=== PATIENT | male | born 1975 | race Caucasian/White ===

== ENCOUNTER 2016-09-08 11:33 | Emergency (ER) | payer OTHER ==
[2016-09-08 12:17] VITALS: BP 120/72; PULSE 100; RESP 16; O2SAT 97
[2016-09-08] MEDS ORDERED: IBUPROFEN 600 MG TAB PO ONE (12:18)
--- NOTE | 2016-09-08 13:55 | UCPHY ---
H & P Time Seen by Provider: 09/08/16 13:34 Patient Type: New HPI/ROS: This patient presents with a chief complaint of fever up to 101 degrees associated with myalgias, headache and cough. Symptoms began yesterday. He has had some minimal nasal congestion but no sore throat and he also denies chest pain and shortness of breath. He did not receive a shot for influenza. REVIEW OF SYSTEMS: Constitutional: Fever, fatigue and myalgia Eyes: No complaints ENT: Mild nasal congestion, denies sore throat, denies earache Respiratory: Cough, no shortness of breath Cardiac: Chest pain when coughing only Gastrointestinal: Nausea, denies abdominal pain, vomiting or diarrhea Genitourinary: Not addressed Musculoskeletal: Myalgias Skin: No rash Neurological: Headache Smoking Status: Former smoker Physical Exam: GENERAL: Well-appearing, well-nourished and in no acute distress. HEAD: Atraumatic, normocephalic. EYES: sclera anicteric, conjunctiva are normal. ENT: nares patent, oropharynx clear without exudates. Moist mucous membranes. NECK: Normal range of motion, supple without lymphadenopathy or JVD. LUNGS: Breath sounds clear to auscultation bilaterally and equal. No wheezes rales or rhonchi. HEART: Regular rate and rhythm ABDOMEN: Soft, nontender, No guarding, no rebound. No masses appreciated. EXTREMITIES: Normal range of motion, NEUROLOGICAL: Cranial nerves II through XII grossly intact. Normal speech, normal gait. PSYCH: Normal mood, normal affect. SKIN: Warm, dry, normal turgor, no visible rashes or lesions. Constitutional: Initial Vital Signs Temperature (C) 37 C 09/08/16 12:15 Heart Rate 100 09/08/16 12:15 Respiratory Rate 16 09/08/16 12:15 Blood Pressure 120/72 09/08/16 12:15 O2 Sat (%) 97 09/08/16 12:15 O2 Delivery Mode Room Air Allergies/Adverse Reactions: No Known Allergies Allergy (Verified 09/08/16 12:17) Home Medications: Medication Instructions Recorded Oseltamivir Phosphate [Tamiflu 75 75 mg PO BID #10 cap 09/08/16 mg (RX)] Medical Decision Making - Data Points Laboratory Results: 09/08/16 12:22 Influenza Typ A,B (DFA) POSITIVE FOR FLU B H (NEGATIVE) Medications Given: Discontinued Medications Ibuprofen (Motrin) 600 mg PO EDNOW ONE Stop: 09/08/16 12:19 Last Admin: 09/08/16 12:24 Dose: 600 mg Departure - Departure Disposition: Home, Routine, Self-Care Clinical Impression: Influenza B Condition: Good Instructions: Influenza (ED), Fever in Adults (ED) Additional Instructions: If you're not improving after 1 week you should be re-evaluated. If you feel that your symptoms are worsening you should be seen sooner. Keep yourself well hydrated but do not force yourself to eat. Adult Pain & Fever Control: We recommend Acetaminophen (Tylenol) and Ibuprofen (Motrin, Advil) for pain and fever control. When fever is high or pain severe, both drugs can be used at the same time, but at different intervals. Please note the time differences. Your dose is: Acetaminophen [650]mg every 4 to 6 hours ibuprofen [600]mg every [6] hours with food OR naproxen Sodium (Aleve) [440]mg every 12 hours. Note: do not take Acetaminophen with Hydrocodone (Vicodin, Lortab) or Oxycodone (Percocet). These medications also contain Acetaminophen. No more than 3000 mg of Acetaminophen should be taken in 24 hours (for an adult) . The maximal dose of ibuprofen that it is safe in a 24-hour period is 2400 mg. You may take 400 mg every 4 hours, 600 mg every 6 hours or 800 mg every 8 hours safely. Referrals: Doctor Not,On Staff, MD [Primary Care Provider] - As per Instructions Prescriptions: Oseltamivir Phosphate [Tamiflu 75 mg (RX)] 75 mg PO BID #10 cap - PQRS PQRS Measurement: Not applicable
[2016-09-08 14:04] VITALS: TEMP 98.8
== END 2016-09-08 14:00 | disposition home or self-care (01) ==
LOC: CED 11:33
DX: J10.1 Influenza due to other identified influenza virus with other respiratory manifestations (principal); Z87.891 Personal history of nicotine dependence
CPT/HCPCS: 87400-PO; 99213-PO; G0463-PO